=== PATIENT | female | born 1935 | race Caucasian/White ===

== ENCOUNTER 2016-02-26 16:13 | Emergency (ER) | payer MEDICARE ==
[2016-02-26] MEDS ORDERED: HYDROcodone/Acetaminophen 5/325 mg Tablet ONE (16:56)
--- NOTE | 2016-02-26 17:20 | ERRECORD ---
[facility] EMERGENCY RECORD HPI ARTHRITIS (17:03 JL) CHIEF COMPLAINT: Patient presents for evaluation of Pt with chronic severe arthritis. Previously in her right knee for which she is scheduled for a replacement. The past 2 weeks she started having low back pain where her previous surgery was and Dr. Blackman scheduled her to see Dr. Sosa for an MRI and eval. The past few days her right hip and leg down to her knee has been hurting. She couldn't get into her PCP today due to the holiday but would like some pain meds to get her through the next few days till she can see Dr. Blackman. HISTORIAN: History provided by patient. LOCATION: Symptoms are localized. QUALITY: Pain is dull in nature. TIME COURSE: Gradual onset of symptoms, Symptoms are worsening, are constant. ASSOCIATED WITH: No associated chills, No associated cough, No associated fever, Associated with stiffness, No associated upper respiratory infection. EXACERBATED BY: Patient's condition exacerbated by extension, Patient's condition exacerbated by flexion, Patient's condition exacerbated by walking, Patient's condition exacerbated by bearing weight. RELIEVED BY: Patient's condition relieved by nothing. ROS (17:05 JL) CONSTITUTIONAL: Historian denies chills, denies fever. GI: Historian denies nausea, denies vomiting. MUSCULOSKELETAL: Historian reports arthralgias, reports back pain, denies fall, denies injury, reports joint stiffness. SKIN: Historian denies rash, denies skin changes. NEUROLOGIC: Historian denies paralysis, denies paresthesias, denies sensory changes. PAST MEDICAL HISTORY MEDICAL HISTORY: Flu vaccine not up to date, Tetanus immunization up to date, Pneumococcal vaccine not up to date, Past medical history includes gastrointestinal disease, gastroesophageal reflux disease, Past medical history includes history of hypertension, which has been treated, Past medical history includes musculoskeletal disorder, chronic back pain, osteoarthritis. (16:41 LHAL) FEMALE SURGICAL HISTORY: HEART CATH (1998), BLADDER (2004), HEMORRHOIDS (2007), ASHLEY EYE SX (2013), Surgical history of carpal tunnel surgery, Surgical history of cholecystectomy, Surgical history of hysterectomy, Surgical history of orthopedic surgery, ASHLEY FOOT, RIGHT KNEE, Surgical history of spinal surgery, Surgical history of tonsillectomy. (16:41 LHAL) PSYCHIATRIC HISTORY: Psychiatric history includes, anxiety. (16:43 LHAL) SOCIAL HISTORY: Patient has no smoking history, Patient &a-1R&a+25V*p+0X*[id number]*c202B*c15G*c2P*p-0X&a-25V&a+1R Name: Leann Vargas : 1935 F81 MedRec: [id number] AcctNum: [id number] Prepared: FriFeb 26, 2016 17:11 by Interface Page 1 of 4 pMD [facility] EMERGENCY RECORD denies alcohol use, Patient denies drug use. (16:41 LHAL) FAMILY HISTORY: Family history is non-contributory to this case. (16:41 LHAL) NOTES: Nursing records reviewed, Agree with nursing records. (17:06 JL) KNOWN ALLERGIES atenolol benzonatate LIDOCAINE mometasone furoate NASONEX orphenadrine CURRENT MEDICATIONS CeleBREX: CAPSULE : Strength - 200 mg : ORAL Patient Dose: 200 mg Oral once a day. (16:34 LHAL) hydrochlorothiazide: TABLET : Strength - 25 mg : ORAL Patient Dose: 25 mg Oral once a day. (16:34 LHAL) lisinopril: TABLET : Strength - 10 mg : ORAL Patient Dose: 10 mg Oral once a day. (16:34 LHAL) Premarin: TABLET : Strength - 0.625 mg : ORAL Patient Dose: 0.625 mg Oral once a day. (16:34 LHAL) potassium chloride: CAPSULE, EXTENDED RELEASE : Strength - 10 mEq : ORAL Patient Dose: 10 mEq Oral once a day.Entered brand: potassium chloride ER capsule,extended release. (16:34 LHAL) omeprazole: CAPSULE,DELAYED RELEASE (ENTERIC COATED) : Strength - 20 mg : ORAL Patient Dose: 20 mg Oral once a day. (16:34 LHAL) Xanax: TABLET : Strength - 0.5 mg : ORAL Patient Dose: 0.5 mg Oral As Needed. (16:34 LHAL) aspirin: TABLET : Strength - 81 mg : ORAL Patient Dose: 81 mg Oral once a day. (16:34 LHAL) [place]: TABLET : Strength - 5 mg-325 mg : ORAL Patient Dose: 1 tab(s) Oral every 6 hours PRN. (16:34 LHAL) Calcium 600 with Vitamin D3: TABLET, CHEWABLE : Strength - 600 mg calcium (1,500 mg)-400 unit : ORAL Patient Dose: 1200+200 mg Oral once a day. (16:37 LHAL) amLODIPine: TABLET : Strength - 2.5 mg : ORAL Patient Dose: 2.5 mg Oral once a day. (16:38 LHAL) &a-1R&a+25V*p+0X*[id number]*c202B*c15G*c2P*p-0X&a-25V&a+1R Name: Leann Vargas : 1935 F81 MedRec: [id number] AcctNum: [id number] Prepared: FriFeb 26, 2016 17:11 by Interface Page 2 of 4 pMD [facility] EMERGENCY RECORD VITAL SIGNS (16:20 LHAL) VITAL SIGNS: BP: 138/80 (Sitting), Pulse: 90 (Regular), Resp: 18 (Non-Labored), Temp: 97.3 (Oral), Pain: 8 (Constant), O2 sat: 98 on Room Air, Time: 02/26/2016 16:20. PHYSICAL EXAM (17:05 [facility]) CONSTITUTIONAL: Vital signs reviewed, Patient appears non toxic, Patient alert and oriented to person, place and time. EYES: Eye exam included findings of eyelids normal to inspection, Pupils equally round and reactive to light, Conjunctiva normal. RESPIRATORY CHEST: Respiratory exam included findings of no respiratory distress, Chest exam included findings of chest movement symmetrical. CARDIOVASCULAR: Cardiovascular exam included findings of heart rate regular rate and rhythm, Heart sounds normal. BACK: Back exam included findings of normal inspection, range of motion normal, Tenderness, midline to the lower back, paraspinal to the right lower, Straight leg raise, pain with any movement of the hip. UPPER EXTREMITY: Upper extremity exam included findings of inspection normal. LOWER EXTREMITY: Lower extremity exam included findings of inspection normal, Motor strength normal, Sensation intact, Pedal pulse normal, no edema, no calf tenderness, Pt with arthritic changes of the knee. TTP entire knee, upper thigh, and the entre right hip and sciatic region. NEURO: Bethany coma scale 15, Neuro exam findings include patient oriented to person, place and time, Speech normal. SKIN: Skin exam included findings of skin warm, dry, and normal in color, no rash. PSYCHIATRIC: Normal affect. MEDICATION ADMINISTRATION SUMMARY Drug Name: HYDROcodone-acetaminophen, Dose Ordered: 5/325 tab(s), Route: Oral, Status: Given, Time: 16:58 02/26/2016, Detailed record available in Medication Service section. DOCTOR NOTES (17:06 SILVIA) TEXT: Discussed the importance of not taking the alprazolam and hydrocodone together due to side effects. Pt acknowledges and reports she will stop the alprazolam until she is no longer needing the hydrocodone. PROBLEM LIST No recorded problems DIAGNOSIS (16:57 DEBORAH) FINAL: PRIMARY: Low back pain, ADDITIONAL: &a-1R&a+25V*p+0X*[id number]*c202B*c15G*c2P*p-0X&a-25V&a+1R Name: Leann Vargas : 1935 F81 MedRec: [id number] AcctNum: [id number] Prepared: FriFeb 26, 2016 17:11 by Interface Page 3 of 4 pMD [facility] EMERGENCY RECORD Osteoarthritis, RIGHT hip pain. PRESCRIPTION (16:56 [facility]) HYDROcodone-acetaminophen: TABLET : 5 mg-325 mg : ORAL : Quantity: 1 Unit: tab(s) Route: ORAL Schedule: every 6 hours PRN Dispense: 15 May substitute. Refills: No Refills . NOTES: No Refills. DISPOSITION PATIENT: Disposition Type: Discharge, Disposition: *Discharge Home. (16:57 [facility]) Patient left the department. (17:06 [facility]) Rodriguez: SILVIA=MD Angel, Tyree [facility]=Billy RN, Valeria &a-1R&a+25V*p+0X*[id number]*c202B*c15G*c2P*p-0X&a-25V&a+1R Name: Leann Vargas : 1935 F81 MedRec: [id number] AcctNum: [id number] Prepared: FriFeb 26, 2016 17:11 by Interface Page 4 of 4 pMD MTDD
--- NOTE | 2016-02-26 17:23 | PICIS ---
[facility] EMERGENCY RECORD TRIAGE (16:31 LHAL) TRIAGE NOTES: CHRONIC RT KNEE PAIN, NOW HAS PAIN RADIATING TO RT HIP, NEEDS SOMETHING FOR PAIN, NO TRAUMA. (16:31 LHAL) PATIENT: NAME: Leann Vargas, AGE: 81, GENDER: female, : [facility] 1935, TIME OF GREET: FriFeb 26, 2016 16:14, PREFERRED LANGUAGE: [place] Citizen, ETHNICITY: Not or , ECODE BILLING MAP: [facility], SSN: [id number], Zip Code: [address], KG WEIGHT: 90.72, PHONE: , , , PERSON ID: [id number], PCP: Gabrielle CHING C. HENRY. (16:31 LHAL) COMPLAINT: RT KNEE TO RT HIP,PAIN,3-4 DAYS,LOW BACK PAIN. (16:31 LHAL) ADMISSION: URGENCY: 4 Non Urgent, ADMISSION SOURCE: Home, TRANSPORT: CAR, BED: ER -02. (16:31 LHAL) ASSESSMENT: Assessment: NEEDS STRONGER PAIN MED FOR RT HIP PAIN CAUSED BY HER RIGHT KNEE PAIN, Symptoms began JANUARY. (16:41 LHAL) PAIN: Patient complains of pain described as, aching, on a scale 0-10 patient rates pain as 8, Location RT HIP, Pain is constant, Aggravating factors:, Pain exacerbated by movement. (16:41 LHAL) IMMUNIZATIONS: Flu vaccine up to date, Tetanus immunization up to date, Pneumococcal vaccine up to date, Notes: TOOK NAPROXEN AND XANAX THIS AM FOR PAIN. (16:41 LHAL) SIRS SCORING: Heart Rate 55-109 (0), Temp range 96.8-101.1 (0), respiratory rate 12-24 (0), Mental Status altered: no (0), Infection or Suspected Infection: No. (16:41 LHAL) TRIAGE SCREENING: Patient denies suicidal ideation, Patient denies presence of domestic violence. (16:41 LHAL) LMP: LMP: Hysterectomy. (16:41 LHAL) PROVIDERS: TRIAGE NURSE: Valeria Cervantes RN. (16:31 LHAL) VITAL SIGNS: BP 138/80, (Sitting), Pulse 90, (Regular), Resp 18, (Non-Labored), Temp 97.3, (Oral), Pain 8, (Constant), O2 Sat 98, on Room Air, Time 02/26/2016 16:20. (16:20 LHAL) PREVIOUS VISIT ALLERGIES: LIDOCAINE. (16:31 LHAL) LIDOCAINE. (16:41 LHAL) KNOWN ALLERGIES atenolol benzonatate LIDOCAINE mometasone furoate NASONEX orphenadrine CURRENT MEDICATIONS CeleBREX: CAPSULE : Strength - 200 mg : ORAL Patient Dose: 200 mg Oral once a day. (16:34 LHAL) hydrochlorothiazide: TABLET : Strength - 25 mg : ORAL &a-1R&a+25V*p+0X*q9492J*c202B*c15G*c2P*p-0X&a-25V&a+1R Name: Leann Vargas : 1935 F81 MedRec: [id number] AcctNum: [id number] Prepared: FriFeb 26, 2016 17:16 by Interface Page 1 of 6 pMD [facility] EMERGENCY RECORD Patient Dose: 25 mg Oral once a day. (16:34 LHAL) lisinopril: TABLET : Strength - 10 mg : ORAL Patient Dose: 10 mg Oral once a day. (16:34 LHAL) Premarin: TABLET : Strength - 0.625 mg : ORAL Patient Dose: 0.625 mg Oral once a day. (16:34 LHAL) potassium chloride: CAPSULE, EXTENDED RELEASE : Strength - 10 mEq : ORAL Patient Dose: 10 mEq Oral once a day.Entered brand: potassium chloride ER capsule,extended release. (16:34 LHAL) omeprazole: CAPSULE,DELAYED RELEASE (ENTERIC COATED) : Strength - 20 mg : ORAL Patient Dose: 20 mg Oral once a day. (16:34 LHAL) Xanax: TABLET : Strength - 0.5 mg : ORAL Patient Dose: 0.5 mg Oral As Needed. (16:34 LHAL) aspirin: TABLET : Strength - 81 mg : ORAL Patient Dose: 81 mg Oral once a day. (16:34 LHAL) Wedron: TABLET : Strength - 5 mg-325 mg : ORAL Patient Dose: 1 tab(s) Oral every 6 hours PRN. (16:34 LHAL) Calcium 600 with Vitamin D3: TABLET, CHEWABLE : Strength - 600 mg calcium (1,500 mg)-400 unit : ORAL Patient Dose: 1200+200 mg Oral once a day. (16:37 LHAL) amLODIPine: TABLET : Strength - 2.5 mg : ORAL Patient Dose: 2.5 mg Oral once a day. (16:38 LHAL) VITAL SIGNS (16:20 LHAL) VITAL SIGNS: BP: 138/80 (Sitting), Pulse: 90 (Regular), Resp: 18 (Non-Labored), Temp: 97.3 (Oral), Pain: 8 (Constant), O2 sat: 98 on Room Air, Time: 02/26/2016 16:20. NURSING ASSESSMENT: EXTREMITY LOWER (16:31 LHAL) CONSTITUTIONAL: Patient arrives ambulatory, Gait steady, History obtained from patient, Patient appears, anxious, obese, uncomfortable, Patient cooperative, Patient alert, Oriented to person, place and time, Skin warm, Skin dry, Skin normal in color, Mucous membranes pink, Mucous membranes moist, Patient is well-groomed, Patient complains of HAS CHRONIC RT KNEE PAIN, DUE FOR REPLACEMENT SURGERY IN MAR, KNEE PAIN CAUSING HER RIGHT HIP TO HURT, AND NEEDS STRONGER PAIN MEDS FOR RT HIP PAIN, NO HX OF INJURY PT USING WALKER TO AMBULATE. PAIN: aching pain, to the right hip, Onset of pain WEEKS, constant, on a scale 0-10 patient rates pain as 8, CHRONIC RT KNEE PAIN CAUSING &a-1R&a+25V*p+0X*t6619B*c202B*c15G*c2P*p-0X&a-25V&a+1R Name: Leann Vargas : 1935 F81 MedRec: [id number] AcctNum: [id number] Prepared: FriFeb 26, 2016 17:16 by Interface Page 2 of 6 pMD [facility] EMERGENCY RECORD CHRONIC RT HIP PAIN AND BACK PAIN,, Pain exacerbated by nothing, Pain exacerbated by, TAKING NAPROXEN AND XANAX FOR PAIN, Pain exacerbated by. LEFT LOWER EXTREMITY: Left lower extremity assessment findings include capillary refill less than 2 seconds, Skin color normal, Skin temperature warm, Distal sensation intact, Muscle tone normal, muscle strength 5, no edema present, posterior tibia pulse is +3, dorsalis pedis pulse is +3, Inspection findings include no signs of infection, Inspection findings include no signs of trauma, Inspection findings include no swelling. RIGHT LOWER EXTREMITY: Right lower extremity assessment findings include capillary refill less than 2 seconds, Skin color normal, Skin temperature warm, Distal sensation intact, Muscle tone normal, muscle strength 3, +3 edema present, posterior tibia pulse is +3, dorsalis pedis pulse is +3, Inspection findings include no shortening of leg, Inspection findings include no signs of infection, Inspection findings include no signs of trauma, Inspection findings include swelling, to RT KNEE, NO DISCOLORATION. SAFETY: Side rails up, Cart/Stretcher in lowest position, Family at bedside, Call light within reach, Hospital ID band on. NURSING PROCEDURE: DISCHARGE NOTE (17:03 LHAL) DISCHARGE: Patient discharged to home, ambulating with walker, family driving, accompanied by other family member, Summary of Care printed/ provided, Patient requested and was provided an electronic copy of Discharge Instructions, Transition record given to patient, Discharge instructions given to patient, Simple or moderate discharge teaching performed, by Jayda CERVANTES RN, Prescriptions given and instructions on side effects given, Name of prescription(s) given: NORCO, Medication reconciliation form given, and reviewed with patient, Above person(s) verbalized understanding of discharge instructions and follow-up care, Notes: DC HOME WITH FAMILY, AMBULATES WITH WALKER, STABLE, NO DISTRESS. BELONGINGS: Belongings and valuables with patient upon arrival to the Emergency Department include:. NURSING PROCEDURE: NURSE NOTES (16:41 LHAL) NURSES NOTES: Patient examined by physician. MEDICATION ADMINISTRATION SUMMARY Drug Name: HYDROcodone-acetaminophen, Dose Ordered: 5/325 tab(s), Route: Oral, Status: Given, Time: 16:58 02/26/2016, Detailed record available in Medication Service section. MEDICATION SERVICE (16:58 [facility]) HYDROcodone-acetaminophen: Order: HYDROcodone-acetaminophen (hydrocodone bitartrate/acetaminophen) - Dose: 5/325 tab(s) : Oral Ordered by: Tyree Ortiz MD &a-1R&a+25V*p+0X*[id number]*c202B*c15G*c2P*p-0X&a-25V&a+1R Name: Leann Vargas : 1935 F81 MedRec: [id number] AcctNum: [id number] Prepared: FriFeb 26, 2016 17:16 by Interface Page 3 of 6 pMD [facility] EMERGENCY RECORD Entered by: Tyree Ortiz MD FriFeb 26, 2016 16:56 Documented as given by: Valeria Cervantes RN FriFeb 26, 2016 16:58 Patient, Medication, Dose, Route and Time verified prior to administration. Amount given: ONE TAB, Site: Medication administered P.O., Correct patient, time, route, dose and medication confirmed prior to administration, Patient advised of actions and side-effects prior to administration, Allergies confirmed and medications reviewed prior to administration, Administered by Jayda CERVANTES RN, Patient in position of comfort, Side rails up, Cart in lowest position, Family at bedside. HPI ARTHRITIS (17:03 DEBORAH) CHIEF COMPLAINT: Patient presents for evaluation of Pt with chronic severe arthritis. Previously in her right knee for which she is scheduled for a replacement. The past 2 weeks she started having low back pain where her previous surgery was and Dr. Ching scheduled her to see Dr. Sosa for an MRI and eval. The past few days her right hip and leg down to her knee has been hurting. She couldn't get into her PCP today due to the holiday but would like some pain meds to get her through the next few days till she can see Dr. Ching. HISTORIAN: History provided by patient. LOCATION: Symptoms are localized. QUALITY: Pain is dull in nature. TIME COURSE: Gradual onset of symptoms, Symptoms are worsening, are constant. ASSOCIATED WITH: No associated chills, No associated cough, No associated fever, Associated with stiffness, No associated upper respiratory infection. EXACERBATED BY: Patient's condition exacerbated by extension, Patient's condition exacerbated by flexion, Patient's condition exacerbated by walking, Patient's condition exacerbated by bearing weight. RELIEVED BY: Patient's condition relieved by nothing. ROS (17:05 JL) CONSTITUTIONAL: Historian denies chills, denies fever. GI: Historian denies nausea, denies vomiting. MUSCULOSKELETAL: Historian reports arthralgias, reports back pain, denies fall, denies injury, reports joint stiffness. SKIN: Historian denies rash, denies skin changes. NEUROLOGIC: Historian denies paralysis, denies paresthesias, denies sensory changes. PAST MEDICAL HISTORY MEDICAL HISTORY: Flu vaccine not up to date, Tetanus immunization up to date, Pneumococcal vaccine not up to date, Past medical history includes gastrointestinal disease, gastroesophageal reflux disease, Past medical history includes history of hypertension, which has been treated, Past medical history includes &a-1R&a+25V*p+0X*u4446R*c202B*c15G*c2P*p-0X&a-25V&a+1R Name: Leann Vargas : 1935 F81 MedRec: [id number] AcctNum: [id number] Prepared: FriFeb 26, 2016 17:16 by Interface Page 4 of 6 pMD [facility] EMERGENCY RECORD musculoskeletal disorder, chronic back pain, osteoarthritis. (16:41 LHAL) FEMALE SURGICAL HISTORY: HEART CATH (1998), BLADDER (2004), HEMORRHOIDS (2007), ASHLEY EYE SX (2013), Surgical history of carpal tunnel surgery, Surgical history of cholecystectomy, Surgical history of hysterectomy, Surgical history of orthopedic surgery, ASHLEY FOOT, RIGHT KNEE, Surgical history of spinal surgery, Surgical history of tonsillectomy. (16:41 LHAL) PSYCHIATRIC HISTORY: Psychiatric history includes, anxiety. (16:43 LHAL) SOCIAL HISTORY: Patient has no smoking history, Patient denies alcohol use, Patient denies drug use. (16:41 LHAL) FAMILY HISTORY: Family history is non-contributory to this case. (16:41 LHAL) NOTES: Nursing records reviewed, Agree with nursing records. (17:06 [facility]) PHYSICAL EXAM (17:05 [facility]) CONSTITUTIONAL: Vital signs reviewed, Patient appears non toxic, Patient alert and oriented to person, place and time. EYES: Eye exam included findings of eyelids normal to inspection, Pupils equally round and reactive to light, Conjunctiva normal. RESPIRATORY CHEST: Respiratory exam included findings of no respiratory distress, Chest exam included findings of chest movement symmetrical. CARDIOVASCULAR: Cardiovascular exam included findings of heart rate regular rate and rhythm, Heart sounds normal. BACK: Back exam included findings of normal inspection, range of motion normal, Tenderness, midline to the lower back, paraspinal to the right lower, Straight leg raise, pain with any movement of the hip. UPPER EXTREMITY: Upper extremity exam included findings of inspection normal. LOWER EXTREMITY: Lower extremity exam included findings of inspection normal, Motor strength normal, Sensation intact, Pedal pulse normal, no edema, no calf tenderness, Pt with arthritic changes of the knee. TTP entire knee, upper thigh, and the entre right hip and sciatic region. NEURO: Eloina coma scale 15, Neuro exam findings include patient oriented to person, place and time, Speech normal. SKIN: Skin exam included findings of skin warm, dry, and normal in color, no rash. PSYCHIATRIC: Normal affect. EVENTS TRANSFER: Triage to Emergency Emergency Room -02. (FriFeb 26, 2016 16:31 LHAL) Removed from Emergency Emergency Room -02. (17:06 LHAL) DOCTOR NOTES (17:06 [facility]) &a-1R&a+25V*p+0X*q7491M*c202B*c15G*c2P*p-0X&a-25V&a+1R Name: Leann Vargas : 1935 F81 MedRec: [id number] AcctNum: [id number] Prepared: FriFeb 26, 2016 17:16 by Interface Page 5 of 6 pMD [facility] EMERGENCY RECORD TEXT: Discussed the importance of not taking the alprazolam and hydrocodone together due to side effects. Pt acknowledges and reports she will stop the alprazolam until she is no longer needing the hydrocodone. PROBLEM LIST No recorded problems DIAGNOSIS (16:57 JL) FINAL: PRIMARY: Low back pain, ADDITIONAL: Osteoarthritis, RIGHT hip pain. DISPOSITION PATIENT: Disposition Type: Discharge, Disposition: *Discharge Home. (16:57 JL) Patient left the department. (17:06 [facility]) INSTRUCTION (16:57 JL) DISCHARGE: BACK PAIN W/ SCIATICA. FOLLOWUP: Gabrielle CHING, Chio BOOKER, [facility], [address] [place] [id number], [phone], Follow up with Primary Care Physician in 3-4 days. PRESCRIPTION (16:56 JL) HYDROcodone-acetaminophen: TABLET : 5 mg-325 mg : ORAL : Quantity: 1 Unit: tab(s) Route: ORAL Schedule: every 6 hours PRN Dispense: 15 May substitute. Refills: No Refills . NOTES: No Refills. IMAGING *SUPPLY CHARGE SHEET: Image captured from scanner. (16:58 [facility]) *DISCHARGE INSTRUCTIONS RECEIPT: Image captured from scanner. (17:04 [facility]) NORCO RX: Image captured from scanner. (17:04 [facility]) ADMIN DIGITAL SIGNATURE: ALDEN Cervantes Linda. (17:06 [facility]) MD Ortiz Joshua. (17:08 [facility]) Rodriguez: SILVIA=MD Ortiz Joshua LHAL=ALDEN Cervantes Linda &a-1R&a+25V*p+0X*i6698H*c202B*c15G*c2P*p-0X&a-25V&a+1R Name: Leann Vargas : 1935 F81 MedRec: [id number] AcctNum: [id number] Prepared: FriFeb 26, 2016 17:16 by Interface Page 6 of 6 pMD [facility] MEDICATION RECONCILIATION You were seen in the Emergency Department on: FriFeb 26, 2016 KNOWN ALLERGIES atenolol benzonatate LIDOCAINE mometasone furoate NASONEX orphenadrine MEDICATIONS GIVEN WHILE IN THE EMERGENCY DEPARTMENT HYDROcodone-acetaminophen (hydrocodone bitartrate/acetaminophen) - Dose: 5/325 tab(s) : Oral HOME MEDICATIONS CONTINUE PRESCRIBED amLODIPine : TABLET : Strength - 2.5 mg : ORAL Continue as prescribed Patient had been takin.5 mg Oral once a day. aspirin : TABLET : Strength - 81 mg : ORAL Continue as prescribed Patient had been takin mg Oral once a day. Calcium 600 with Vitamin D3 : TABLET, CHEWABLE : Strength - 600 mg calcium (1,500 mg)-400 unit : ORAL Continue as prescribed Patient had been takin+200 mg Oral once a day. CeleBREX : CAPSULE : Strength - 200 mg : ORAL Continue as prescribed Patient had been takin mg Oral once a day. hydrochlorothiazide : TABLET : Strength - 25 mg : ORAL Continue as prescribed Patient had been takin mg Oral once a day. lisinopril : TABLET : Strength - 10 mg : ORAL Continue as prescribed Patient had been takin mg Oral once a day. &a-1R&a+25V*p+0X*r9111R*c202B*c15G*c2P*p-0X&a-25V&a+1R Name: Leann Vargas : 1935 F81 MedRec: [id number] AcctNum: [id number] Prepared: FriFeb 26, 2016 17:16 by Interface pMD [facility] MEDICATION RECONCILIATION Wedron : TABLET : Strength - 5 mg-325 mg : ORAL Continue as prescribed Patient had been takin tab(s) Oral every 6 hours PRN. omeprazole : CAPSULE,DELAYED RELEASE (ENTERIC COATED) : Strength - 20 mg : ORAL Continue as prescribed Patient had been takin mg Oral once a day. potassium chloride : CAPSULE, EXTENDED RELEASE : Strength - 10 mEq : ORAL Continue as prescribed Patient had been takin mEq Oral once a day. Premarin : TABLET : Strength - 0.625 mg : ORAL Continue as prescribed Patient had been takin.625 mg Oral once a day. HOLD MEDICATION UNTIL SEEN BY YOUR PMD Xanax : TABLET : Strength - 0.5 mg : ORAL Hold medication until seen by your PMD Patient had been takin.5 mg Oral As Needed. PRESCRIPTIONS (1) &a-1R&a+25V*p+0X*x0134V*c202B*c15G*c2P*p-0X&a-25V&a+1R Name: Leann Vargas : 1935 F81 MedRec: [id number] AcctNum: [id number] Prepared: FriFeb 26, 2016 17:16 by Interface pMD [facility]
== END 2016-02-26 17:03 | disposition home or self-care (01) ==
LOC: NAV ERS 16:13
DX: M16.11 Unilateral primary osteoarthritis, right hip (principal); M54.5 Low back pain; K21.9 Gastro-esophageal reflux disease without esophagitis; I10 Essential (primary) hypertension; F41.9 Anxiety disorder, unspecified; Z90.49 Acquired absence of other specified parts of digestive tract; Z90.89 Acquired absence of other organs; Z90.710 Acquired absence of both cervix and uterus; Z79.891 Long term (current) use of opiate analgesic; Z79.899 Other long term (current) drug therapy; Z79.82 Long term (current) use of aspirin
CPT/HCPCS: 99283

== ENCOUNTER 2016-08-20 15:45 | Outpatient (CLI) | payer MEDICARE ==
[2016-08-20 19:09] LABS: Bilirubin Negative (Negative); Blood, Urine Negative (Negative); Clarity Clear (Clear); Glucose, Urine (Dipstick) Negative (Negative); Leukocyte Negative (Negative); Nitrite Negative (Negative); Protein, Urine (Dipstick) Negative (Neg-Trace); Urobilinogen 0.2 mg/dL (0.2-1.0); pH, Urine 6.5 (5.0-9.0)
[2016-08-20 19:40] LABS: Bacteria/HPF Rare-Few HPF (None Seen); RBC/HPF 0-3 HPF (0-3); Squamous Epithelial 0-3 HPF (0-3)
== END 2016-08-20 15:46 | disposition home or self-care (01) ==
LOC: NAV LAB 15:45
PROVIDERS: ATTEND Urology
DX: N39.41 Urge incontinence (principal)
CPT/HCPCS: 81001; 87086

== ENCOUNTER 2016-09-16 09:17 | Outpatient (CLI) | payer MEDICARE ==
[2016-09-16 13:46] LABS: Thyroid Stimulating Hormone 0.7857 uIU/mL (0.35-4.94)
[2016-09-16 13:50] LABS: ALT (SGPT) 36 U/L (8-55); AST (SGOT) 48 U/L (5-34); Alkaline Phosphatase 95 U/L (40-150); Anion Gap 17 mmol/L (10-20); BUN (Urea Nitrogen) 9 mg/dL (9.8-20.1); Bilirubin, Direct 0.2 mg/dL (0.1-0.3); Bilirubin, Total 0.3 mg/dL (0.2-1.2); Calc. Creatinine Clearance 0 mL/min (70-130); Calcium 8.7 mg/dL (7.8-10.44); Carbon Dioxide 22 mmol/L (23-31); Cardiac Risk 2.8 (Less than 4.5); Chloride 95 mmol/L (98-107); Cholesterol 230 mg/dl (< 200 Desired); Estimated GFR-MDRD 81; Glucose 86 mg/dL (83-110); HDL Cholesterol 81 mg/dL (>60 Neg Risk); LDL Cholesterol, Calculated 138 mg/dL; Potassium 4.3 mmol/L (3.5-5.1); Sodium 130 mmol/L (136-145); Triglycerides 53 mg/dL (Less than 150)
[2016-09-16 13:59] LABS: Hemoglobin A1c 5.5 % (4.0-6.0)
[2016-09-16 14:25] LABS: #Basophils 0.1 thou/uL (0.0-0.2); #Eosinphils 0.4 thou/uL (0.0-0.7); #Monocytes 0.8 thou/uL (0.11-0.59); #Neutrophils 5.4 thou/uL (1.40-6.50); %Basophils 0.7 % (0.0-1.0); %Eosinophils 5.2 % (0.0-10.0); %Lymphocytes 12.5 % (21.0-51.0); %Monocytes 10.9 % (0.0-10.0); %Neutrophils 70.7 % (42.0-75.0); Anisocytosis SLIGHT = 6-15 cells (100X) (0-5/hpf); Hemoglobin 9.1 g/dL (12.0-16.0); Hypochromia SLIGHT = 6-15 cells (100X) (0-5/hpf); MDiff Complete? YES; Mean Corpuscular HGB CONC 30.7 g/dL (32.0-36.0); Mean Corpuscular Hemoglobin 22.4 pg (27.0-31.0); Mean Corpuscular Volume 73.1 fl (81.0-99.0); Mean Platelet Volume 6.3 fL (7.4-10.4); Microcytosis SLIGHT = 6-15 cells (100X) (0-5/hpf); PLT Morphology Comment Appears Adequate; Platelet Count 279 thou/uL (130-400); RBC Distribution Width 15.1 % (11.5-14.5); Red Blood Cell (RBC) Count 4.08 mill/uL (4.20-5.40); White Blood Cell (WBC) Count 7.7 thou/uL (4.8-10.8)
[2016-09-16 17:45] LABS: Iron 16 ug/dL (50-170); Iron Binding Capacity, Total 454 mcg/dL (265-497)
[2016-09-16 18:05] LABS: Ferritin 17.87 ng/mL (10-291)
== END 2016-09-16 09:18 | disposition home or self-care (01) ==
LOC: NAVSJIPCSP 09:17
PROVIDERS: ATTEND Family Medicine
DX: E78.00 Pure hypercholesterolemia, unspecified (principal); I10 Essential (primary) hypertension; M51.16 Intervertebral disc disorders with radiculopathy, lumbar region; D64.9 Anemia, unspecified; K21.0 Gastro-esophageal reflux disease with esophagitis; D64.89 Other specified anemias; Z79.899 Other long term (current) drug therapy
CPT/HCPCS: 36415; 80048; 80061; 80076; 82607; 82728; 82746; 83036; 83540; 83550; 84443; 85025

== ENCOUNTER 2017-07-23 18:09 | Outpatient (CLI) | payer MEDICARE ==
[2017-07-23 20:15] LABS: #Basophils 0.1 thou/uL (0.0-0.2); #Eosinphils 0.2 thou/uL (0.0-0.7); #Monocytes 0.8 thou/uL (0.11-0.59); #Neutrophils 6.2 thou/uL (1.40-6.50); %Basophils 0.9 % (0.0-1.0); %Eosinophils 1.6 % (0.0-10.0); %Lymphocytes 28.7 % (21.0-51.0); %Monocytes 8.2 % (0.0-10.0); %Neutrophils 60.7 % (42.0-75.0); Anisocytosis MODERATE=16-30 cells (100X) (0-5/hpf); Hemoglobin 6.4 g/dL (12.0-16.0); Hypochromia MARKED = >30 cells (100X) (0-5/hpf); MDiff Complete? YES; Mean Corpuscular Hemoglobin 18.5 pg (27.0-31.0); Mean Corpuscular Volume 63.7 fl (81.0-99.0); Microcytosis SLIGHT = 6-15 cells (100X) (0-5/hpf); Platelet Count 445 thou/uL (130-400); RBC Distribution Width 15.9 % (11.5-14.5); Red Blood Cell (RBC) Count 3.46 mill/uL (4.20-5.40); White Blood Cell (WBC) Count 10.3 thou/uL (4.8-10.8)
== END 2017-07-23 18:10 | disposition home or self-care (01) ==
LOC: NAV LABSP 18:09
PROVIDERS: ATTEND Family Medicine
DX: D64.9 Anemia, unspecified (principal)
CPT/HCPCS: 36415; 85025

== ENCOUNTER 2018-11-11 10:32 | Inpatient (IN) | payer MEDICARE ==
[2018-11-11] MEDS ORDERED: cefTRIAXone\\ROCEPHIN 2 GM VIAL ONE (11:31)
[2018-11-11] MEDS ORDERED: Sodium Chloride 0.9% 100 ML ONE (11:31)
[2018-11-11] MEDS ORDERED: Sodium Chloride 0.9% 500 ML ONE (11:31)
[2018-11-11 11:35] LABS: #Basophils 0.1 thou/uL (0.0-0.2); #Eosinphils 0.1 thou/uL (0.0-0.7); #Lymphocytes 1.7 thou/uL (1.20-3.40); #Neutrophils 9.1 thou/uL (1.40-6.50); %Basophils 0.6 % (0.0-1.0); %Eosinophils 0.9 % (0.0-10.0); %Monocytes 8.4 % (0.0-10.0); Hemoglobin 11.5 g/dL (12.0-16.0); Mean Corpuscular HGB CONC 32.1 g/dL (32.0-36.0); Mean Corpuscular Volume 87.3 fL (78.0-98.0); Mean Platelet Volume 5.9 fL (7.4-10.4); Platelet Count 297 thou/uL (130-400); RBC Distribution Width 12.3 % (11.5-14.5); Red Blood Cell (RBC) Count 4.11 mill/uL (4.20-5.40)
[2018-11-11 11:51] LABS: ALT (SGPT) 12 U/L (8-55); AST (SGOT) 17 U/L (5-34); Albumin 3.8 g/dL (3.4-4.8); Alkaline Phosphatase 74 U/L (40-150); Anion Gap 15 mmol/L (10-20); BUN (Urea Nitrogen) 9 mg/dL (9.8-20.1); Bilirubin, Total 0.5 mg/dL (0.2-1.2); Calc. Creatinine Clearance 0 mL/min (70-130); Calcium 9.3 mg/dL (7.8-10.44); Carbon Dioxide 24 mmol/L (23-31); Chloride 97 mmol/L (98-107); Estimated GFR-MDRD Greater than 90; Glucose 91 mg/dL (83-110); Potassium 3.8 mmol/L (3.5-5.1); Protein, Total 6.8 g/dL (6.0-8.3); Sodium 132 mmol/L (136-145)
[2018-11-11] MEDS ORDERED: Morphine 4 MG/ML VIAL ONE (12:17)
--- NOTE | 2018-11-11 13:15 | ULT ---
VENOUS DOPPLER ULTRASOUND OF THE LEFT LOWER EXTREMITY: 11/11/18 HISTORY: Left lower extremity pain and edema. Dog bite three weeks ago. TECHNIQUE: Freeman scale ultrasound with color flow and spectral Doppler imaging of the deep venous system of the l eft lower extremity was performed. FINDINGS: There is good flow, compression, and augmentation noted in the left common femoral, femoral, deep fem oral, popliteal, posterior tibial, peroneal and greater saphenous veins. IMPRESSION: No evidence of deep venous thrombosis in the left lower extremity. POS: OFF
[2018-11-11 13:55] LABS: Bilirubin Negative (Negative); Blood, Urine Negative (Negative); Clarity Clear (Clear); Glucose, Urine (Dipstick) Negative (Negative); Leukocyte Trace (Negative); Nitrite Negative (Negative); Protein, Urine (Dipstick) Negative (Neg-Trace); Urobilinogen 0.2 mg/dL (Less than 2)
[2018-11-11] MEDS ORDERED: Acetaminophen 500 MG TAB ONE (14:08)
[2018-11-11] MEDS ORDERED: Adacel (T-DAP) 0.5 ML SYRINGE ONE (14:08)
[2018-11-11 14:18] LABS: Squamous Epithelial 0-3 HPF (0-3); WBC/HPF 0-3 HPF (0-3)
[2018-11-11 15:51] VITALS: BMI 30.9
[2018-11-11] MEDS ORDERED: Ondansetron PF 4 MG/2 ML Vial IVP PRN (15:52)
[2018-11-11] MEDS ORDERED: Acetaminophen 325 MG TAB PO PRN (15:52)
[2018-11-11] MEDS ORDERED: Ondansetron ODT 4 MG TAB SL PRN (15:52)
[2018-11-11] MEDS ORDERED: HYDROcodone/Acetaminophen 5/325 mg Tablet PO PRN ×2 (15:52)
[2018-11-11] MEDS ORDERED: ALPRAZolam 0.5 MG TAB PO PRN ×2 (15:53→18:15)
[2018-11-11] MEDS ORDERED: Amlodipine 5 MG TAB PO SCH (17:00)
[2018-11-11] MEDS: Gabapentin 300 MG CAP PO SCH (20:43)
--- NOTE | 2018-11-12 02:09 | HP ---
HISTORY OF PRESENT ILLNESS: Ms. Vargas is an 83-year-old white female, who presented to the emergency room this morning with a history of being bit by a domestic dog approximately 3 weeks ago. She says she was standing with her son-in-law when the dog just came up and bit her in the left posterior calf. It bit her twice. She went home, cleaned it, and did not think anything about it. She states it has been drying up and getting better over the last 2 to 3 weeks. Yesterday, it started getting a little tender and red. When she woke up this morning, it was red around the anterior part of her patella. She came to the emergency room, was seen by Dr. Piña and evaluated. Ultrasound was done, which was unremarkable, but he felt that she would need to be in the hospital with some IV antibiotics. He has given her some Rocephin initially and she is admitted to the hospital. PAST MEDICAL HISTORY: Positive for hypertension, GERD, urinary and fecal incontinence, arthritis, anxiety and depressive disorder, chronic pain syndrome, and neuropathy. PAST SURGICAL HISTORY: 1. Tonsillectomy [address] Domingo. 2. Some type of uterine surgery by Dr. Clark in 1961. 3. [place]ste[place] [address] Marie. 4. Right foot bone spur done by Dr. Marie in 1983. 5. Knee surgery by Dr. Barlow in 1993. 6. Knee replacement by Dr. Barlow in 2008. 7. Cholecystectomy by Dr. Montejo in 1996. 8. Cardiac cath by Dr. Barber in 1998. 9. Back surgery by Dr. Ruddy Mccormack in 2001. 10. Bladder surgery by Dr. Awan and Dr. Morataya in 2004. 11. Hemorrhoidectomy by Dr. Dhaliwal and Dr. Nash in 2007. 12. Carpal tunnel release by Dr. Cantu in 2009. 13. Left carpal tunnel syndrome by Dr. Barlow in 2010. 14. Bone spur in left foot in 1985. 15. Cataract surgery by Dr. Parmar, right and left, bilateral, in 2013. 16. Right rotator cuff surgery by in 2012. 17. Total knee arthroplasty. 18. Back surgery by Dr. Rodas in 2016. FAMILY HISTORY: 1. The patient's father of coronary artery disease and stroke. 2. The patient's mother of coronary artery disease and IA. 3. The patient has a sister with heart attack. 4. The patient has 1 son and 2 daughters, whom are all alive and healthy. SOCIAL HISTORY: The patient does not smoke. Does not drink alcohol. She is . She drinks 2 to 3 cups of caffeine a day. She does not exercise. She is retired. ALLERGIES: SHE IS ALLERGIC TO SULFA, LIDOCAINE, ORPHENADRINE, ATENOLOL, AND FENOFIBRATE. PRESENT MEDICATIONS: Reveal she is on the following, 1. Aspirin 81 mg daily. 2. Amlodipine 2.5 mg daily. 3. Hydrochlorothiazide 25 mg 2 pills daily. 4. Potassium chloride 10 mEq daily. 5. Premarin 0.625 daily. 6. Omeprazole 20 mg each morning. 7. Alprazolam 0.5 mg p.r.n. extreme anxiety. 8. Hydrocodone 5/500 p.r.n. hip and knee pain from her orthopedist. 9. Celebrex 200 mg daily. 10. Gabapentin 300 mg 1 or 2 pills each evening. 11. Iron pills daily. 12. Fish oil 1000 mg daily. 13. Alive daily vitamins once a day. REVIEW OF SYSTEMS: CONSTITUTIONAL: The patient states she has not had any fever or chills, has not lost any weight. Denies any headache. HEENT: She denies any visual changes or changes in her hearing. RESPIRATORY: She denies any respiratory problems including hemoptysis, productive sputum, cough, cold, congestion or dyspnea. CARDIOVASCULAR: The patient denies PND, edema, dyspnea on exertion, chest pain, rapid or irregular heartbeat. GI: The patient denies change in bowel habits, nausea, vomiting, diarrhea, constipation, black or bloody tarry stools, or dysphagia. : The patient is incontinent of urine and has some type of bowel problems, where if she eats, she has gastrocolic reflex. MUSCULOSKELETAL: The patient has a bad right knee and can barely walk. She is waiting to get her knee replaced after finishes his heart surgery. She has had injections to the right knee. She has no significant rashes except for her left posterior calf, which has a rather red, irritated, and presently now wrapped up cellulitis. Her white count was noted to be 12,000 with a slight shift. NEUROLOGIC: The patient is oriented to person, place, time, and situation. PHYSICAL EXAMINATION: GENERAL: This is a well-developed, well-nourished, somewhat obese white female, in no apparent distress at this time. HEENT: Normocephalic and nontraumatic cranium. Pupils are equally round and reactive. Extraocular movements are intact. Nose and throat are slightly dry. NECK: Supple without masses, nodes or bruits. CHEST: Clear to auscultation, almost tachycardia, rate at 92, but the patient is somewhat excited. No murmurs, gallops or rubs are noted. Occasional skipped beat is noted. ABDOMEN: Obese, soft, nontender without organomegaly. Normal bowel sounds are noted. No rebound or guarding is noted. GENITOURINARY: Deferred. EXTREMITIES: Left leg has a pin line around the redness, which extends right to the upper portion of the patella, which is not significantly tender, but slightly warm and red. NEUROLOGICAL: Unremarkable. ASSESSMENT: 1. Cellulitis with a 3-week history of nonantibiotic treatment from a dog bite 3 weeks ago. 2. Hypertension, most likely from the patient being in the hospital. 3. Arthritis. 4. Gastroesophageal reflux disease. 5. Anxiety and depressive disorder. 6. Neuropathy. PLAN: 1. The patient was started on Rocephin 1 g IV q.24 hours. 2. We will continue her present medications. 3. Repeat labs in the morning. 4. Continue to hydrate the patient. 5. We will follow up closely. Job ID: [id number]
[2018-11-12 05:40] LABS: #Basophils 0.1 thou/uL (0.0-0.2); #Eosinphils 0.2 thou/uL (0.0-0.7); #Monocytes 0.8 thou/uL (0.11-0.59); #Neutrophils 6.8 thou/uL (1.40-6.50); %Basophils 0.7 % (0.0-1.0); %Eosinophils 1.9 % (0.0-10.0); %Lymphocytes 20.1 % (21.0-51.0); %Monocytes 8.4 % (0.0-10.0); %Neutrophils 68.9 % (42.0-75.0); Hemoglobin 11.9 g/dL (12.0-16.0); Mean Corpuscular HGB CONC 32.7 g/dL (32.0-36.0); Mean Corpuscular Hemoglobin 28.2 pg (27.0-31.0); Mean Corpuscular Volume 86.1 fL (78.0-98.0); Platelet Count 299 thou/uL (130-400); RBC Distribution Width 12.3 % (11.5-14.5); Red Blood Cell (RBC) Count 4.21 mill/uL (4.20-5.40); White Blood Cell (WBC) Count 9.9 thou/uL (4.8-10.8)
[2018-11-12 05:53] LABS: Anion Gap 15 mmol/L (10-20); BUN (Urea Nitrogen) 6 mg/dL (9.8-20.1); Calc. Creatinine Clearance 95 mL/min (70-130); Carbon Dioxide 25 mmol/L (23-31); Chloride 99 mmol/L (98-107); Estimated GFR-MDRD Greater than 90; Glucose 92 mg/dL (83-110); Potassium 3.7 mmol/L (3.5-5.1); Sodium 135 mmol/L (136-145)
[2018-11-12] MEDS ORDERED: Sodium Chloride 0.9% 30 ML ONE (08:30)
[2018-11-12] MEDS: Fish Oil 1,000 MG CAP PO SCH (08:51)
[2018-11-12] MEDS: Calcium Carbonate + Vit D 1 TAB PO SCH (08:51)
[2018-11-12] MEDS: Amlodipine 5 MG TAB PO SCH (08:51)
[2018-11-12] MEDS: Hydrochlorothiazide 25 MG TAB PO SCH (08:52)
[2018-11-12] MEDS: Ferrous Gluconate 324 MG TAB PO SCH (08:52)
[2018-11-12] MEDS: Multivitamin W/ Minerals 1 TAB PO SCH (08:53)
[2018-11-12] MEDS: CeleCOXIB 100 MG CAP PO SCH (08:53)
[2018-11-12] MEDS: Aspirin Chewable 81 MG TAB PO SCH (08:53)
[2018-11-12] MEDS: Potassium Chloride 10 MEQ TAB PO SCH (08:54)
[2018-11-12] MEDS: HYDROcodone/Acetaminophen 5/325 mg Tablet PO SCH (08:54)
--- NOTE | 2018-11-12 10:39 | PRG ---
DATE OF SERVICE: 11/12/2018 SUBJECTIVE: Ms. Vargas is a well-developed, well-nourished, very pleasant 83-year-old white female, who was bit by a pet dog, Peat approximately 3 weeks ago. She presented to the emergency room yesterday with a red, swollen, and inflamed left knee. Her white count was elevated to 12,000. She was seen by Dr. Piña and started on Rocephin and vancomycin. We have continued that. This morning, she states she feels better and her redness has much improved. Lab results this morning reveal white count down from 12,000 to 9,900. Sodium is up from 132 to 135, potassium 3.7, chloride 99, BUN is down from 96, creatinine is down from 0.6 to 2.58. Urinalysis is unremarkable. OBJECTIVE: GENERAL: The patient states she is feeling better and her leg is certainly less red, but still draining. HEENT: Normocephalic and nontraumatic cranium. Pupils are equal, round, and reactive. Extraocular movements are intact. Nose and throat are slightly dry. NECK: Supple without masses, nodes, or bruits. CHEST: Clear to auscultation. No rales, rhonchi, or wheezes are heard. HEART: Reveals a regular rate and rhythm without murmurs, gallops, or rubs. Not tachy this morning. ABDOMEN: Obese, soft, nontender without organomegaly. Normal bowel sounds are noted in all 4 quadrants. No rebound or guarding is noted. GENITOURINARY: Deferred. EXTREMITIES: Reveal left leg has decreased redness. It is still red and the posterior portion still has some drainage. NEUROLOGIC: Unremarkable. LABORATORY DATA: The patient is growing some gram-positive cocci, but sensitivity is not back yet. ASSESSMENT: 1. Cellulitis with a 3-week history of non-antibiotic treatment for a dog bite 3 weeks ago. 2. Hypertension. 3. Arthritis. 4. Gastroesophageal reflux disease. 5. Anxiety and depressive disorder. 6. Neuropathy. PLAN: 1. Continue present medications, which is Rocephin, which is much improved. 2. Continue her home medications. 3. Repeat labs tomorrow morning. 4. Continue to hydrate the patient. 5. Continue to follow up. 6. Possible discharge tomorrow if she does well and we get the cultures back. Job ID: [id number]
[2018-11-12] MEDS ORDERED: Sodium Chloride 0.9% 20 ML ONE (15:30)
[2018-11-12] MEDS ORDERED: cefTRIAXone\\ROCEPHIN 1 GM in Sodium Chloride 0.9% 100 ML IVPB SCH (16:00)
[2018-11-12] MEDS ORDERED: Vancomycin HCl 1 GM in Sodium Chloride 0.9% 250 ML 250 ML IVPB SCH (17:00)
[2018-11-12] MEDS: Gabapentin 300 MG CAP PO SCH (21:02)
[2018-11-13 05:24] LABS: #Basophils 0.1 thou/uL (0.0-0.2); #Eosinphils 0.2 thou/uL (0.0-0.7); #Lymphocytes 1.7 thou/uL (1.20-3.40); #Monocytes 0.9 thou/uL (0.11-0.59); #Neutrophils 4.3 thou/uL (1.40-6.50); %Basophils 1.1 % (0.0-1.0); %Eosinophils 3.2 % (0.0-10.0); %Lymphocytes 23.6 % (21.0-51.0); %Monocytes 12.6 % (0.0-10.0); %Neutrophils 59.6 % (42.0-75.0); Mean Corpuscular HGB CONC 32.1 g/dL (32.0-36.0); Mean Corpuscular Volume 87.3 fL (78.0-98.0); Mean Platelet Volume 6.2 fL (7.4-10.4); Platelet Count 282 thou/uL (130-400); RBC Distribution Width 12.2 % (11.5-14.5); Red Blood Cell (RBC) Count 3.91 mill/uL (4.20-5.40); White Blood Cell (WBC) Count 7.3 thou/uL (4.8-10.8)
[2018-11-13 05:34] LABS: Anion Gap 14 mmol/L (10-20); BUN (Urea Nitrogen) 6 mg/dL (9.8-20.1); Calc. Creatinine Clearance 100 mL/min (70-130); Calcium 8.7 mg/dL (7.8-10.44); Carbon Dioxide 27 mmol/L (23-31); Chloride 97 mmol/L (98-107); Estimated GFR-MDRD Greater than 90; Glucose 92 mg/dL (83-110); Potassium 3.5 mmol/L (3.5-5.1); Sodium 134 mmol/L (136-145)
[2018-11-13] MEDS: Aspirin Chewable 81 MG TAB PO SCH (08:42)
[2018-11-13] MEDS: Amlodipine 5 MG TAB PO SCH (08:42)
[2018-11-13] MEDS: Calcium Carbonate + Vit D 1 TAB PO SCH (08:42)
[2018-11-13] MEDS: Hydrochlorothiazide 25 MG TAB PO SCH (08:43)
[2018-11-13] MEDS: Fish Oil 1,000 MG CAP PO SCH (08:43)
[2018-11-13] MEDS: CeleCOXIB 100 MG CAP PO SCH (08:43)
[2018-11-13] MEDS: Ferrous Gluconate 324 MG TAB PO SCH (08:43)
[2018-11-13] MEDS: HYDROcodone/Acetaminophen 5/325 mg Tablet PO SCH (08:45)
[2018-11-13] MEDS: Multivitamin W/ Minerals 1 TAB PO SCH (08:45)
[2018-11-13] MEDS: Potassium Chloride 10 MEQ TAB PO SCH (08:46)
[2018-11-13 13:26] VITALS: BP 199/106; TEMP 97.8
--- NOTE | 2018-11-14 04:39 | DIS ---
DATE OF ADMISSION: 11/11/2018 DATE OF DISCHARGE: 11/13/2018 HISTORY: Patient is a well-developed, well-nourished 83-year-old white female, who presented to the emergency room on 11/11/2018 with a history of being bit by a dog approximately 3 weeks prior. She was doing very well until the day before it started getting red and on the day of admission, she had redness all the way around the back of her leg on to her knee. She was admitted to the hospital and being seen by the ER physician, started on vancomycin and Rocephin. Her redness significantly decreased and drainage stopped. Culture and sensitivities came back today with MRSA. It was sensitive to Bactrim, Cipro, doxycycline, etc. The patient is allergic to sulfa drugs. We placed her on ciprofloxacin with precautions and warnings. The patient is ready to take her medications. She states she will take it one pill twice a day for the next 14 days as prescribed. Prescription was handed to her daughter. PHYSICAL EXAMINATION: GENERAL: This is a well-developed, well-nourished, somewhat obese white female, in no apparent distress. HEENT: Reveal normocephalic and nontraumatic cranium. Pupils are equal, round, and reactive. Extraocular movements are intact. Nose and throat are slightly dry, but clear. NECK: Supple without masses, nodes, or bruits. CHEST: Clear to auscultation. No rales, rhonchi, or wheezes are heard. HEART: Reveals a regular rate and rhythm without murmurs, gallops, or rubs. ABDOMEN: Obese, soft, nontender without organomegaly. Normal bowel sounds are noted in all 4 quadrants. No rebound or guarding is noted. : Deferred. EXTREMITIES: Reveal the left leg is much improved. No redness is noted in the back, in the front. On the calf, the patient has several eschar-type areas of which the largest is approximately 1-1/2 inches x 3/4 of an inch. The patient also has some small areas of 1/4 inch x 1/4 inch with dark eschar. The redness and swelling are significantly improved. No significant drainage is noted and is dry at this time. NEUROLOGIC: The patient is oriented to person, place, and time. The patient has been afebrile. LABORATORY: Reveals white count is down from 12,000 down to 7300 with a hemoglobin 11, hematocrit 34.2, and platelet count 283,000. neutrophils have gone down to normal. have gone up to normal. Patient's sodium is 134, potassium 3.5, chloride 97, with a BUN of 6, and creatinine 0.55. The patient is doing very well and is much improved. ASSESSMENT: 1. Cellulitis of the posterior calf secondary to dog bite, which is much improved. 2. Hypertension. 3. Arthritis. 4. Gastroesophageal reflux disease. 5. Anxiety and depressive disorder. 6. Neuropathy. PLAN: Patient is being discharged from the hospital. 1. The patient will be on Cipro 500 mg one pill b.i.d. for the next 14 days. 2. The patient will continue her previous home medications. 3. The patient will continue to hydrate herself well. 4. The patient has been given instructions on how to change her dressings and how to care for her wound. 5. The patient will make an appointment with me about one and half weeks about 10 days from today. If she has any problems, she is to see my nurse practitioner, Rufina Agudelo. Job ID: [id number]
== END 2018-11-13 13:25 | disposition home or self-care (01) | DRG 603 ==
LOC: NAV ERS 10:32 → NAV ACUTE 15:33
PROVIDERS: ADMIT Family Medicine; ATTEND Family Medicine
DX: L03.116 Cellulitis of left lower limb (principal); G62.9 Polyneuropathy, unspecified; I10 Essential (primary) hypertension; D50.9 Iron deficiency anemia, unspecified; E78.5 Hyperlipidemia, unspecified; E78.00 Pure hypercholesterolemia, unspecified; F41.9 Anxiety disorder, unspecified; M19.90 Unspecified osteoarthritis, unspecified site; G89.29 Other chronic pain; F32.9 Major depressive disorder, single episode, unspecified; M51.16 Intervertebral disc disorders with radiculopathy, lumbar region; K21.0 Gastro-esophageal reflux disease with esophagitis; Z96.659 Presence of unspecified artificial knee joint; Z90.49 Acquired absence of other specified parts of digestive tract; Z90.710 Acquired absence of both cervix and uterus; W54.0XXA Bitten by dog, initial encounter; Z88.2 Allergy status to sulfonamides; Z88.8 Allergy status to other drugs, medicaments and biological substances; Z79.899 Other long term (current) drug therapy
CPT/HCPCS: 36415; 80048; 80053; 81003; 81015; 83605; 85025; 87070; 87077; 87086; 87186; 87205; 90471; 90715; 96365; 96375; J0696; J2270; J3370; J3490; J7050